=== PATIENT | male | born 1965 | race Caucasian/White ===

== ENCOUNTER 2017-09-19 06:30 | Day surgery (SDC) | payer BC ==
[~2017-09-19] VITALS: Ht 190.5 cm; Wt 109.3 kg
[~2017-09-19 06:30] MED LIST: LOSA50TA6 PO
[2017-09-19] MEDS ORDERED: ROPIvacaine/PF 0.5%, 30 ML ONE (06:37)
[2017-09-19] MEDS ORDERED: LIDOCAINE 1%-EPI 1:100K, 30ML ONE (06:37)
[2017-09-19] MEDS ORDERED: EPINEPHRINE TOPICAL SOLN 1 MG/ML, 30ML ONE (06:40)
[2017-09-19] MEDS ORDERED: LACTATED RINGERS 1,000 ML IV SCH (07:03)
[2017-09-19] MEDS ORDERED: FENTANYL PF 100 MCG/2ML ONE ×2 (07:24→08:36)
[2017-09-19] MEDS ORDERED: MIDAZOLAM 1 MG/ML, 2ML ONE (07:24)
[2017-09-19] MEDS ORDERED: ACETAMINOPHEN 500 MG TABLET PO ONE (07:30)
[2017-09-19] MEDS ORDERED: GABAPENTIN 300 MG CAPSULE PO ONE (07:30)
[2017-09-19] MEDS ORDERED: CEFAZOLIN 1,000 MG ONE (07:35)
[2017-09-19] MEDS ORDERED: DEXAMETHASONE 4 MG/ML, 1ML ONE (07:35)
[2017-09-19] MEDS ORDERED: ONDANSETRON 2MG/ML, 2ML ONE (07:35)
[2017-09-19] MEDS ORDERED: PROPOFOL 10 MG/ML, 20ML ONE (07:35)
[2017-09-19 07:37] VITALS: BP 135/88
[2017-09-19 07:43] LABS: ALANINE AMINOTRANSFERASE 43 U/L (12-78); ANION GAP 6 mmol/L (5-15); CALCIUM 8.6 mg/dL (8.5-10.1); CHLORIDE 110 mmol/L (98-107); CREATININE 0.95 mg/dL (0.7-1.3)
[2017-09-19 07:45] LABS: ALKALINE PHOSPHATASE 88 U/L (45-117); BILIRUBIN,TOTAL 0.6 mg/dL (0.2-1.0); TOTAL PROTEIN 6.9 g/dL (6.4-8.2)
[2017-09-19] MEDS ORDERED: KETOROLAC 30 MG/1 ML ONE (08:23)
[2017-09-19] MEDS ORDERED: MEPERIDINE/PF 25MG/0.5ML IVPush PRN (08:30)
[2017-09-19] MEDS ORDERED: LABETALOL 5MG/ML, 20ML IV PRN (08:30)
[2017-09-19] MEDS ORDERED: PROMETHAZINE 25 MG/ML, 1ML IV PRN (08:30)
[2017-09-19] MEDS ORDERED: ALBUTEROL/IPRATROPIUM 2.5MG/0.5MG, 3 ML NPPB PRN (08:30)
[2017-09-19] MEDS ORDERED: MIDAZOLAM 1 MG/ML, 2ML IV PRN (08:30)
[2017-09-19] MEDS ORDERED: ONDANSETRON 2MG/ML, 2ML IV PRN (08:30)
[2017-09-19] MEDS ORDERED: FENTANYL PF 100 MCG/2ML IV PRN (08:30)
[2017-09-19] MEDS ORDERED: OXYcodone 5 MG/5 ML ORAL.SOL UDC PO PRN (08:30)
[2017-09-19] MEDS ORDERED: EPHEDRINE 50 MG/ML, 1ML IM PRN (08:30)
[2017-09-19] MEDS ORDERED: OXYcodone 5 MG/5 ML ORAL.SOL UDC ONE (09:19)
[2017-09-19] MEDS ORDERED: HYDROmorphone 2 MG/ML, 1ML ONE (09:19)
[2017-09-19] MEDS: HYDROmorphone 1 MG/ML, 1ML IV PRN ×3 (09:22→09:39)
== END 2017-09-19 11:25 | disposition home or self-care (01) ==
LOC: OUT 06:30
PROVIDERS: ATTEND Orthopaedic Surgery
DX: M25.851 Other specified joint disorders, right hip (principal); M70.70 Other bursitis of hip, unspecified hip; I10 Essential (primary) hypertension; Z96.641 Presence of right artificial hip joint; Z98.890 Other specified postprocedural states; Z79.899 Other long term (current) drug therapy
CPT/HCPCS: 29999; 36415; 73501; 76000; 80053; J0690; J1100; J1170; J1885; J2250; J2405; J2704; J3010; J7120; J2795; J3490

== ENCOUNTER 2020-02-24 06:14 | Inpatient (IN) | payer BC ==
[~2020-02-24] VITALS: Ht 190.5 cm; Wt 112.0 kg
[~2020-02-24 06:14] MED LIST changes: +ACET-1600 PO; +LOSA50TA14 PO; -LOSA50TA6 PO
[2020-02-24] MEDS ORDERED: CHLORHEXIDINE 15 ML UDC MM ONE (07:30)
[2020-02-24] MEDS ORDERED: LACTATED RINGERS 1,000 ML IV SCH (07:30)
[2020-02-24] MEDS ORDERED: MIDAZOLAM 1 MG/ML, 2ML ONE (08:18)
[2020-02-24] MEDS ORDERED: FENTANYL PF 250 MCG/5ML ONE ×2 (08:18→09:36)
[2020-02-24] MEDS ORDERED: CEFAZOLIN 1,000 MG ONE ×3 (08:29→12:01)
[2020-02-24] MEDS ORDERED: ONDANSETRON 2MG/ML, 2ML ONE (08:29)
[2020-02-24] MEDS ORDERED: SUCCINYLCHOLINE 20 MG/ML, 10ML ONE (08:29)
[2020-02-24] MEDS ORDERED: PROPOFOL 10 MG/ML, 20ML ONE (08:29)
[2020-02-24] MEDS ORDERED: DEXAMETHASONE 4 MG/ML, 5ML ONE (08:29)
[2020-02-24] MEDS ORDERED: hydrALAzine 20 MG/ML, 1ML IV PRN (08:30)
[2020-02-24] MEDS ORDERED: OXYcodone 5 MG/5 ML ORAL.SOL UDC PO PRN (08:30)
[2020-02-24] MEDS ORDERED: PROMETHAZINE 25 MG/ML, 1ML IVPush PRN (08:30)
[2020-02-24] MEDS ORDERED: EPHEDRINE 50 MG/ML, 1ML IVPush PRN (08:30)
[2020-02-24] MEDS ORDERED: FENTANYL PF 100 MCG/2ML IV PRN (08:30)
[2020-02-24] MEDS ORDERED: ACETAMINOPHEN 325 MG TABLET PO PRN (08:30)
[2020-02-24] MEDS ORDERED: ONDANSETRON 2MG/ML, 2ML IVPush PRN ×2 (08:30→13:00)
[2020-02-24] MEDS ORDERED: LABETALOL 5MG/ML, 20ML IV PRN (08:30)
[2020-02-24] MEDS ORDERED: THROMBIN 20,000 UNIT VIAL TP ONE (09:34)
[2020-02-24] MEDS ORDERED: EPHEDRINE 50 MG/ML, 1ML ONE (09:57)
[2020-02-24] MEDS ORDERED: FENTANYL PF 100 MCG/2ML ONE ×3 (11:51→12:44)
[2020-02-24] MEDS ORDERED: BUPIVACAINE/EPI 0.5% 1:200K ONE (11:57)
[2020-02-24] MEDS ORDERED: BUPIVACAINE/PF-EPI 0.5% 1:200K INFIL ONE (12:00)
[2020-02-24] MEDS ORDERED: HYDROmorphone 1 MG/ML, 1ML INJ ONE ×3 (12:45→13:32)
[2020-02-24] MEDS ORDERED: OXYcodone 5 MG/5 ML ORAL.SOL UDC ONE (12:45)
[2020-02-24] MEDS ORDERED: morphine SULFATE 10 MG/ML, 1ML IVPush PRN (13:00)
[2020-02-24] MEDS ORDERED: PROMETHAZINE 25 MG/ML, 1ML IM PRN (13:00)
[2020-02-24] MEDS ORDERED: OXYcodone/APAP 5/325MG TABLET PO PRN (13:00)
[2020-02-24] MEDS: HYDROmorphone 1 MG/ML, 1ML INJ IVPush PRN ×5 (13:00→13:45)
[2020-02-24] MEDS: HYDROcodone/APAP 5/325 TABLET PO PRN ×2 (17:05→21:07)
[2020-02-24 18:51] VITALS: BP 130/84
[2020-02-24] MEDS: CEFAZOLIN PMX 2GM/50ML 50 ML IVPB SCH (20:24)
[2020-02-25 00:13] VITALS: BP 129/82
[2020-02-25 00:16] VITALS: BP 120/75
[2020-02-25] MEDS: HYDROcodone/APAP 5/325 TABLET PO PRN ×6 (01:13→22:45)
[2020-02-25] MEDS: CEFAZOLIN PMX 2GM/50ML 50 ML IVPB SCH (04:10)
[2020-02-25 04:13] VITALS: BP 110/65
[2020-02-25] MEDS: ENOXAPARIN 40 MG/0.4 ML SQ SCH (05:20)
[2020-02-25 08:14] VITALS: BP 146/65
[2020-02-25 14:52] VITALS: BP 137/82
[2020-02-25] MEDS ORDERED: ENOX40SY4 SQ (15:21)
[2020-02-25] MEDS ORDERED: HYDR-3237 PO (15:21)
[2020-02-25 19:33] VITALS: BP 137/80
[2020-02-26 01:13] VITALS: BP 129/77
[2020-02-26] MEDS: HYDROcodone/APAP 5/325 TABLET PO PRN ×6 (02:59→23:40)
[2020-02-26] MEDS: ENOXAPARIN 40 MG/0.4 ML SQ SCH (05:06)
[2020-02-26 07:29] VITALS: BP 145/82
[2020-02-26 13:08] VITALS: BP 134/74
[2020-02-26 19:18] VITALS: BP 152/81
[2020-02-27 03:05] VITALS: BP 142/79
[2020-02-27] MEDS: HYDROcodone/APAP 5/325 TABLET PO PRN ×5 (04:04→22:16)
[2020-02-27] MEDS: ENOXAPARIN 40 MG/0.4 ML SQ SCH (05:30)
[2020-02-27 07:53] VITALS: BP 162/75
[2020-02-27 15:13] VITALS: BP 133/79
[2020-02-27 20:00] VITALS: BP 143/84
[2020-02-28 00:42] VITALS: BP 146/85
[2020-02-28] MEDS: HYDROcodone/APAP 5/325 TABLET PO PRN ×4 (02:13→14:51)
[2020-02-28] MEDS: ENOXAPARIN 40 MG/0.4 ML SQ SCH (06:18)
[2020-02-28 07:57] VITALS: BP 140/79
[2020-02-28 12:13] VITALS: BP 148/77
== END 2020-02-28 15:15 | disposition home or self-care (01) | DRG 517 ==
LOC: OUT 06:14 → ORIP 13:00 → 4NE 14:45 → DCLOUNGE 02-28 14:48
PROVIDERS: ADMIT Orthopaedic Surgery; ATTEND Orthopaedic Surgery
PROC: 0QR Lower Bones, Replacement (ICD-10-PCS; principal; 2020-02-24 08:00)
DX: S72.8X1 Other fracture of right femur (principal); Z96.649 Presence of unspecified artificial hip joint; W19.XXXD Unspecified fall, subsequent encounter; Z20.822 Contact with and (suspected) exposure to COVID-19
CPT/HCPCS: 36415; 76000; 82330; 82803; 82947; 84132; 84295; 85014; 85018; 86850; 86900; 87635; C1713; G0378; J0690; J1100; J1170; J1650; J2250; J2405; J2704; J3010; J0330; J7120